=== PATIENT | female | born 1970 | race Caucasian/White ===

== ENCOUNTER 2016-08-03 19:03 | Emergency (ER) | payer BC ==
[2016-08-03 19:16] VITALS: BP 123/87
--- NOTE | 2016-08-03 19:27 | EDM.PDOC ---
ED HPI GENERAL MEDICAL PROBLEM - General Chief Complaint: Lower Extremity Injury/Pain Stated Complaint: ROLLER LEFT ANKLE Time Seen by Provider: 08/03/16 19:27 - History of Present Illness INITIAL COMMENTS - FREE TEXT/NARRATIVE: 46-year-old female presents emergency room with a left ankle injury. This occurred last night about 5:00 in the afternoon the patient was on a trampoline and her ankle rolled in she has significant discomfort or a pop and had some nausea initially but this did resolve on its own. Today the patient has been walking around somewhat gingerly on this but doing work around the house. Patient denies any other injuries associated with this mishap. Patient has had recurrent ankle sprains on the side the past. Left Ankle Pain Score (Numeric/FACES): 4 - Related Data Allergies Allergy/AdvReac Type Severity Reaction Status Date / Time No Known Allergies Allergy Verified 08/03/16 19:18 Home Meds: Home Meds Ibuprofen 800 mg PO ONCALL PRN 04/13/15 [History] Past Medical History HEENT History: Reports: Impaired Vision Other HEENT History: Wears glasses [employer] WORK[employer] History: Reports: - Past Surgical History Female Surgical History: Reports: Section Social & Family History - Family History Family Medical History: Noncontributory - Tobacco Use Smoking Status *Q: Never Smoker Second Hand Smoke Exposure: No - Caffeine Use Caffeine Use: Reports: Coffee - Recreational Drug Use Recreational Drug Use: No Review of Systems - Review of Systems Review Of Systems: See Below Constitutional: Reports: No Symptoms Mouth/Throat: Reports: No Symptoms Respiratory: Reports: No Symptoms Cardiovascular: Reports: No Symptoms GI/Abdominal: Reports: No Symptoms Trauma Exam - Physical Exam Exam: See Below Exam Limited By: No Limitations General Appearance: Reports: Alert, No Apparent Distress Neck: Reports: Non-Tender. Denies: Spinous Processes Tender Respiratory Exam: Reports: No Respiratory Distress, Lungs Clear, Normal Breath Sounds Cardiovascular: Reports: Regular Rate, Rhythm, No Edema, No Murmur Extremities: Other (Examination left lower extremity shows no known with this or tingling below the level of the knee neurovascular status of the digits is normal dorsalis pedis and posterior tibialis pulses are normal. Patient has no palpatory discomfort in the upper calf region minimal discomfort over the distal fibula. Examination of her ankle shows exquisite tenderness over the anterior talofibular ligament and calcaneofibular ligament examination of her foot shows no deformity or bruising she has no tenderness with palpation of the foot no tenderness over the base of the fifth metatarsal or elsewhere.) Course - Vital Signs Last Recorded V/S: Last Vital Signs Temp 37.2 C 08/03/16 19:13 Pulse 97 08/03/16 19:13 Resp 12 08/03/16 19:13 BP 123/87 08/03/16 19:13 Pulse Ox 100 08/03/16 19:13 - Orders/Labs/Meds Orders: Active Orders 24 hr Category Date Time Status Ankle Min 3V Lt [CR] Stat Exams 08/03/16 19:35 Taken Durable Medical Equipment for Discharge [DME for Oth 08/03/16 19:54 Ordered Discharge] [COMM] Stat - Re-Assessments/Exams Free Text/Narrative Re-Assessment/Exam: 08/03/16 20:10 X-ray examination of the ankle is negative for acute fracture dislocation she's got some soft tissue swelling over lateral malleolus clear shots no fracture. The patient will be placed in a walking boot. 08/03/16 20:19 Patient is doing okay with a Western walker she would like to use crutches as well. Departure - Departure Time of Disposition: 20:19 Disposition: Home, Self-Care 01 Clinical Impression: Left ankle sprain - Discharge Information Forms: ED Department Discharge Additional Instructions: Return to the emergency room with any questions or problems. Followup with Hospital clinic at the end of this next week for recheck [phone]. Motrin or ibuprofen as needed for discomfort. Keep your foot and ankle elevated as much as tolerated ice every couple hours as tolerated. - My Orders Last 24 Hours: My Active Orders 08/03/16 19:35 Ankle Min 3V Lt [CR] Stat 08/03/16 19:54 Durable Medical Equipment for Discharge [DME for Discharge] [COMM] Stat - Assessment/Plan Last 24 Hours: My Active Orders 08/03/16 19:35 Ankle Min 3V Lt [CR] Stat 08/03/16 19:54 Durable Medical Equipment for Discharge [DME for Discharge] [COMM] Stat
--- NOTE | 2016-08-04 15:45 | CR ---
Left ankle: Four views of the left ankle were obtained. Comparison: No previous study. Mild soft tissue swelling is identified. Ankle mortise is symmetric. Small detached bony density is noted off the cortex of the medial talus compatible with small cortical chip fracture. This is most likely old. No additional fracture or other bony abnormality is seen. Impression: 1. Soft tissue swelling. 2. Cortical chip fracture off the medial talus most likely old. 3. No acute bony abnormality is identified on left ankle study. Diagnostic code #2
== END 2016-08-03 20:39 | disposition home or self-care (01) ==
LOC: JD.ED 19:03
DX: S93.492A Sprain of other ligament of left ankle, initial encounter (principal); Z98.890 Other specified postprocedural states; W18.40XA Slipping, tripping and stumbling without falling, unspecified, initial encounter; Y93.44 Activity, trampolining
CPT/HCPCS: 73610-26-LT; 73610-LT; 99282; 99284

== ENCOUNTER 2018-06-17 19:59 | Emergency (ER) | payer BC ==
[2018-06-17 20:09] VITALS: BP 114/82
[2018-06-17] MEDS ORDERED: Sodium Chloride 0.9% 1,000 ML IV ONE ×2 (20:13→21:27)
--- NOTE | 2018-06-17 20:14 | EDM.PDOC ---
ED HPI GENERAL MEDICAL PROBLEM - General Chief Complaint: Gastrointestinal Problem Stated Complaint: VOMITING/DIARRHEA/FEVER Time Seen by Provider: 06/17/18 20:12 Source of Information: Reports: Patient - History of Present Illness INITIAL COMMENTS - FREE TEXT/NARRATIVE: Patient presents to the emergency department accompanied by her for evaluation of nausea, vomiting diarrhea and upper abdominal cramping since yesterday. Patient states that she did not feel well when she woke up, most of the morning at work she ended up having diarrhea quite frequently. Left work at 1:15 and did vomit on her way home. Patient describes her pain as cramping in nature, to the upper abdomen specifically the left. She has had frequent diarrhea and vomiting throughout the day. Last episode of both was just prior to arrival in the emergency department. She states that she is even having difficulty tolerating sips of water now. No current ill contacts. No change in diet. No recent travel. No chronic abdominal or GERD symptoms. Patient states that she had this and of May as well. When she had at that time her whole family had similar symptoms and they all resolved. She does not have a history of chronic abdominal problems. On norethindrone for menorrhagia, no other medications or chronic medical conditions. LMP was the last week of May. Middle Abdomen Pain Score (Numeric/FACES): 8 - Related Data Allergies Allergy/AdvReac Type Severity Reaction Status Date / Time No Known Allergies Allergy Verified 06/17/18 20:10 Home Meds: Home Meds Norethindrone [Aygestin] 5 mg PO DAILY 06/17/18 [History] Ondansetron [Zofran] 4 mg PO Q8H #10 tab 06/17/18 [Rx] Past Medical History HEENT History: Reports: Impaired Vision Other HEENT History: Wears glasses [employer] History: Reports: - Past Surgical History Female Surgical History: Reports: Section Social & Family History - Family History Family Medical History: Noncontributory - Caffeine Use Caffeine Use: Reports: Coffee ED ROS GENERAL - Review of Systems Review Of Systems: See Below Constitutional: Reports: Fever, Chills, Malaise, Weakness, Fatigue, Decreased Appetite Respiratory: Reports: No Symptoms Cardiovascular: Reports: No Symptoms GI/Abdominal: Reports: Abdominal Pain, Diarrhea, Decreased Appetite, Flatus, Nausea, Vomiting. Denies: Bloody Stool, Difficulty Swallowing, Hematochezia, Melena : Denies: Dysuria Musculoskeletal: Reports: No Symptoms Skin: Reports: No Symptoms Neurological: Reports: No Symptoms Psychiatric: Reports: No Symptoms ED EXAM, GI/ABD - Physical Exam Exam: See Below Exam Limited By: No Limitations General Appearance: Alert, WD/WN, Moderate Distress Throat/Mouth: Normal Inspection, Normal Oropharynx Head: Atraumatic, Normocephalic Neck: No: Lymphadenopathy (L), Lymphadenopathy (R) Respiratory/Chest: No Respiratory Distress, Lungs Clear, Normal Breath Sounds Cardiovascular: Normal Peripheral Pulses, Regular Rate, Rhythm, No Murmur GI/Abdominal Exam: Normal Bowel Sounds, Soft, Tender (Moderate epigastric, mild RUQ. Leos's sign negative. No tenderness to McBurney's point.) Neurological: Alert, Oriented Skin Exam: Warm, Dry, Intact Course - Vital Signs Last Recorded V/S: Last Vital Signs Temp 99.4 F 06/17/18 20:05 Pulse 123 H 06/17/18 20:05 Resp 18 06/17/18 20:05 BP 114/82 06/17/18 20:05 Pulse Ox 98 06/17/18 20:05 Orthostatic Blood Pressure [ 106/92 Standing] Orthostatic Blood Pressure [ 118/83 Sitting] Orthostatic Blood Pressure [ 121/82 Supine] - Orders/Labs/Meds Orders: Active Orders 24 hr Category Date Time Status Orthostatic Vital Signs [RC] ASDIRECTED Care 06/17/18 20:14 Active Abdomen 2V AP Flat Upright [CR] Stat Exams 06/17/18 20:48 Taken Labs: Laboratory Tests 06/17/18 06/17/18 06/17/18 Range/Units 20:20 20:20 20:20 WBC 5.78 (3.98-10.04) K/mm3 RBC 4.94 (3.98-5.22) M/mm3 Hgb 13.3 (11.2-15.7) gm/L Hct 39.7 (34.1-44.9) % MCV 80.4 (79.4-94.8) fl MCH 26.9 (25.6-32.2) pg MCHC 33.5 (32.2-35.5) g/dl RDW Std Deviation 44.0 (36.4-46.3) fL Plt Count 278 (182-369) K/mm3 MPV 10.0 (9.4-12.3) fl Neutrophils % (Manual) 42 (40-60) % Band Neutrophils % 45 H (0-10) % Lymphocytes % (Manual) 6 L (20-40) % Atypical Lymphs % 0 % Monocytes % (Manual) 5 (2-10) % Eosinophils % (Manual) 0 L (0.7-5.8) % Basophils % (Manual) 2 H (0.1-1.2) Toxic Granulation 1+ slight Platelet Estimate Adequate Plt Morphology Comment Normal RBC Morph Comment Normal Sodium 137 (136-145) mEq/L Potassium 3.2 L (3.5-5.1) mEq/L Chloride 100 (98-107) mEq/L Carbon Dioxide 22 (21-32) mEq/L Anion Gap 18.2 H (5-15) BUN 14 (7-18) mg/dL Creatinine 0.9 (0.55-1.02) mg/dL Est Cr Clr Drug Dosing 73.12 mL/min Estimated GFR (MDRD) > 60 (>60) mL/min BUN/Creatinine Ratio 15.6 (14-18) Glucose 118 H (74-106) mg/dL Calcium 8.8 (8.5-10.1) mg/dL Total Bilirubin 0.6 (0.2-1.0) mg/dL AST 15 (15-37) U/L ALT 17 (14-59) U/L Alkaline Phosphatase 50 (46-116) U/L C-Reactive Protein 15.9 H* (<1.0) mg/dL Total Protein 7.5 (6.4-8.2) g/dl Albumin 3.7 (3.4-5.0) g/dl Globulin 3.8 gm/dL Albumin/Globulin Ratio 1.0 (1-2) Lipase (73-393) U/L HCG, Qual Negative (NEGATIVE) H. pylori IgG Antibody Negative (NEGATIVE) 06/17/18 Range/Units 20:20 WBC (3.98-10.04) K/mm3 RBC (3.98-5.22) M/mm3 Hgb (11.2-15.7) gm/L Hct (34.1-44.9) % MCV (79.4-94.8) fl MCH (25.6-32.2) pg MCHC (32.2-35.5) g/dl RDW Std Deviation (36.4-46.3) fL Plt Count (182-369) K/mm3 MPV (9.4-12.3) fl Neutrophils % (Manual) (40-60) % Band Neutrophils % (0-10) % Lymphocytes % (Manual) (20-40) % Atypical Lymphs % % Monocytes % (Manual) (2-10) % Eosinophils % (Manual) (0.7-5.8) % Basophils % (Manual) (0.1-1.2) Toxic Granulation Platelet Estimate Plt Morphology Comment RBC Morph Comment Sodium (136-145) mEq/L Potassium (3.5-5.1) mEq/L Chloride (98-107) mEq/L Carbon Dioxide (21-32) mEq/L Anion Gap (5-15) BUN (7-18) mg/dL Creatinine (0.55-1.02) mg/dL Est Cr Clr Drug Dosing mL/min Estimated GFR (MDRD) (>60) mL/min BUN/Creatinine Ratio (14-18) Glucose (74-106) mg/dL Calcium (8.5-10.1) mg/dL Total Bilirubin (0.2-1.0) mg/dL AST (15-37) U/L ALT (14-59) U/L Alkaline Phosphatase (46-116) U/L C-Reactive Protein (<1.0) mg/dL Total Protein (6.4-8.2) g/dl Albumin (3.4-5.0) g/dl Globulin gm/dL Albumin/Globulin Ratio (1-2) Lipase 187 (73-393) U/L HCG, Qual (NEGATIVE) H. pylori IgG Antibody (NEGATIVE) Meds: Medications Discontinued Medications Generic Name Dose Route Start Last Admin Trade Name Freq PRN Reason Stop Dose Admin Hydromorphone HCl 0.5 mg 06/17/18 20:26 06/17/18 20:33 Dilaudid IVPUSH 06/17/18 20:27 0.5 mg ONETIME ONE Administration Sodium Chloride 1,000 mls @ 999 mls/hr 06/17/18 20:13 06/17/18 20:20 Normal Saline IV 06/17/18 21:13 999 mls/hr ONETIME ONE Administration Sodium Chloride 1,000 mls @ 999 mls/hr 06/17/18 21:27 06/17/18 21:47 Normal Saline IV 06/17/18 22:27 999 mls/hr ONETIME ONE Administration Ondansetron HCl 4 mg 06/17/18 20:26 06/17/18 20:33 Zofran IVPUSH 06/17/18 20:27 4 mg ONETIME ONE Administration Ondansetron HCl 2 packet 06/17/18 22:09 06/17/18 22:25 Take Home: Ondansetron Odt 4 Mg, 2 Tab Pack PO 06/17/18 22:10 2 packet ONETIME ONE Administration Potassium Chloride 40 meq 06/17/18 21:27 06/17/18 21:47 Klor-Con M20 PO 06/17/18 21:28 40 meq ONETIME ONE Administration - Re-Assessments/Exams Free Text/Narrative Re-Assessment/Exam: Moderate epigastric and mild right RUQ tenderness. No lower abdominal tenderness, no tenderness to McBurney's point. Will get basic lab work. Dilaudid for pain and Zofran for nausea. Start IV normal saline. 06/17/18 20:30 WBC 5,780. Diff pending. CRP 15.9. Potassium is low at 3.2. Patient will be given PO supplement as she is no longer nauseated after Zofran. Anion gap elevated at 18.2. LFTs normal. Lipase normal at 187. H. pylori negative Influenza negative. HCG negative. 06/17/18 20:58 Abdominal xray demonstrates moderate amount of gas in the colon, no excess stool or air/fluid noted. Xray reviewed with Dr Eden. 06/17/18 21:53 On reexam she is not having much abdominal tenderness. Color has returned and she is feeling significantly better with the fluids. Will discharge home with Zofran, she will push fluids. She may advance diet tomorrow if feeling better, follow BRAT diet. If not having significant improvement of her symptoms she will follow-up in the clinic. She will return to the emergency department for any new or worsening symptoms. 06/17/18 22:16 Departure - Departure Time of Disposition: 22:46 Disposition: Home, Self-Care 01 Condition: Good Clinical Impression: Nausea, vomiting and diarrhea, Abdominal cramping - Discharge Information Prescriptions: Ondansetron [Zofran] 4 mg PO Q8H #10 tab Instructions: Viral Gastroenteritis, Adult, [id number] Referrals: PCP,None [Primary Care Provider] - Forms: ED Department Discharge Additional Instructions: To not eat anything today. You may take some sips of water, small sips but frequently. As you begin to feel better, you can advance your diet to follow the BRAT diet and very small portions. Avoid dairy until you are back to herself for a few days. Maximize your fluid intake. Consider a daily probiotic such as Florajen. Return to the emergency department for any new or worsening symptoms, otherwise follow up in the clinic. - My Orders Last 24 Hours: My Active Orders 06/17/18 20:14 Orthostatic Vital Signs [RC] ASDIRECTED 06/17/18 20:48 Abdomen 2V AP Flat Upright [CR] Stat - Assessment/Plan Last 24 Hours: My Active Orders 06/17/18 20:14 Orthostatic Vital Signs [RC] ASDIRECTED 06/17/18 20:48 Abdomen 2V AP Flat Upright [CR] Stat
[2018-06-17] MEDS ORDERED: HYDROmorphone 1 MG/ML Syringe IVPUSH ONE (20:26)
[2018-06-17] MEDS ORDERED: Ondansetron 4 MG/2 ML SDV IVPUSH ONE (20:26)
[2018-06-17] MEDS ORDERED: Potassium Chloride 20 MEQ Tab.ER PO ONE (21:27)
[2018-06-17] MEDS ORDERED: Take Home: Ondansetron 4 MG Tab.DIS, 2 Tab Pack PO ONE (22:09)
--- NOTE | 2018-06-18 06:22 | CR ---
Abdomen: Supine and upright views of the abdomen were obtained. Comparison: Previous study. Bowel gas pattern appears within normal limits. Calcifications are seen within the pelvis which likely represent phleboliths. Scoliosis is noted within the spine. No free air is seen. Visualized lung bases are clear. No discrete soft tissue abnormality is seen. Impression: 1. Incidental findings as noted above. Nothing acute is appreciated. Diagnostic code #1
== END 2018-06-17 22:26 | disposition home or self-care (01) ==
LOC: JD.ED 19:59
DX: R10.13 Epigastric pain (principal); R10.11 Right upper quadrant pain; R11.2 Nausea with vomiting, unspecified; R19.7 Diarrhea, unspecified; Z79.899 Other long term (current) drug therapy
CPT/HCPCS: 36415; 74019; 80053; 83690; 84703; 85007; 85027; 86140; 86677; 87804; 96361; 96374; 96375; 99284; A9270; J1170; J2405; J7040